=== PATIENT | male | born 1975 | race Caucasian/White ===

== ENCOUNTER 2016-12-01 12:16 | Day surgery (SDC) | payer OTHER ==
[2016-11-30 08:44] LABS: HEMATOCRIT 46.3 % (40.0-51.0); HEMOGLOBIN 15.7 g/dL (13.6-17.8)
[2016-11-30 08:51] LABS: PARTIAL THROMBO TIME 28.4 SEC (22.5-37.2); PROTIME (NOT ORD) 13.2 SEC (12.0-14.5)
[2016-11-30 08:56] LABS: BUN (BLOOD UREA NITROGEN) 20 MG/DL (6-23); CALCIUM, SERUM 8.9 MG/DL (8.5-10.4); CHLORIDE, SERUM 104 MMOL/L (96-112); CO2 (CARBON DIOXIDE) 26 MMOL/L (24-34); CREATININE 1.05 MG/DL (0.70-1.30); GFR AFRICAN AMERICAN 100 ML/MIN (>=60); GFR NON AFRICAN AMERICAN 87 ML/MIN (>=60); GLUCOSE, SERUM 270 MG/DL (60-99); POTASSIUM, SERUM 4.2 MMOL/L (3.5-5.3); SODIUM, SERUM 136 MMOL/L (135-148)
--- NOTE | ~2016-12-01 | OP ---
Record Of Operation [facility] [address] [place]. [address] NAME: HARSHAL BARRERA : 71 STATUS : [facility]#: [id number] AGE: 41 ADM/REG DATE : 12/01/16 MR#: [id number] REPORT SERV DATE: 12/13/16 DICTATED BY: DATE: REPORT STATUS : Draft TRANSCRIBED BY: MODL DATE: 12/12/16 DATE OF PROCEDURE: 12/01/2016 PREOP DIAGNOSIS: Painful foreign body, submetatarsal head 5, right foot. POSTOP DIAGNOSIS: Painful foreign body, submetatarsal head 5, right foot. NAME OF OPERATION: Removal of painful foreign body, submetatarsal head 5, right foot. ANESTHESIA: General. HEMOSTASIS: Pneumatic ankle tourniquet. ESTIMATED BLOOD LOSS: Less than 2 mL. PROCEDURE IN DETAIL: Under mild sedation, the patient was brought to the operating room, placed on the operating table in supine position. The foot was then scrubbed, prepped, and draped in the usual aseptic manner. An Esmarch bandage was utilized to exsanguinate the patient's right foot and the pneumatic ankle tourniquet inflated to 250 mmHg. Attention was then diverted to the plantar aspect of the 5th metatarsal head, right foot, where a 4 cm linear longitudinal incision was made. The incision was deepened through subcutaneous tissues with sharp and blunt dissection. Care was taken to identify and retract all vital neurovascular structures. All bleeders were cauterized as necessary. A piece of soft tissue was removed in total which may have encapsulated the foreign body which measured 0.2 x 0.3 cm in diameter on the MRI image. The operative site was then evacuated and "swept" with a curette and irrigated with copious amounts of normal sterile saline. Intraoperative fluoroscopy was taken and no foreign body was noted on the image. The subcutaneous tissues were reapproximated and coapted utilizing 4-0 Vicryl and the skin was reapproximated and coapted utilizing 3-0 nylon in horizontal mattress and simple interrupted suture technique. A postop block consisting of 10 mL of 0.5% Marcaine was injected. The incision was dressed with an ABD pad, 4x4s and 3 and 4 inch Kerlix gauze wrap. Pneumatic ankle tourniquet was deflated and prompt hyperemic response was noted to all digits of the right foot. An Oneal wrap and postop shoe were then applied. The patient tolerated the procedure and anesthesia well. He was transferred to recovery room with vital signs stable and vascular status intact to all digits of the right foot. Following a period of postoperative monitoring the patient was discharged home on written and oral postop instructions. 1. Keep dressing dry and intact, right foot. 2. Remain nonweightbearing, right foot. 3. Ice and elevate right foot when at rest. 4. The patient to wear OrthoWedge healing shoe and use crutches for ambulation assistance. 5. The patient to contact Dr. Serrato for all postop followup care and if any problems arise. /MARTÍN Record Of [address] [address] NAME: HARSHAL BARRERA : 71 STATUS : [facility] PAT#: [id number] AGE: 41 ADM/REG DATE : 12/01/16 MR#: [id number] REPORT SERV DATE: 12/13/16 DICTATED BY: DATE: REPORT STATUS : Draft TRANSCRIBED BY: MARTÍN DATE: 12/12/16 Alex Serrato DPM / [id number] CC: Alex Serrato DPM
[~2016-12-01 12:16] MED LIST: HUMIR1 SC; MULTIPLE VIT PO; TOUJEO SC; [UNRECOGNIZED DRUG - REMARK] SC
== END 2016-12-01 18:12 | disposition home or self-care (01) ==
LOC: SDC 12:16
PROVIDERS: Podiatrist
PROC: 0JCQ0ZZ Extirpation of Matter from Right Foot Subcutaneous Tissue and Fascia, Open Approach (ICD-10-PCS; principal; 2016-12-01 14:30)
DX: S90.851A Superficial foreign body, right foot, initial encounter (principal); E11.9 Type 2 diabetes mellitus without complications; L40.50 Arthropathic psoriasis, unspecified; Z79.4 Long term (current) use of insulin; Z79.899 Other long term (current) drug therapy
CPT/HCPCS: 80048; 82962; 83036; 85014; 85018; 85610; 85730; A9270-GY; J0690; J2405; J3010